=== PATIENT | female | born 1970 | race Two or more races ===

== ENCOUNTER 2023-10-22 16:39 | Inpatient (IN) | payer MEDICARE, OTHER ==
[~2023-10-22] VITALS: Ht 162.6 cm; Wt 69.4 kg
[2023-10-22] MEDS ORDERED: fixodent DT (20:17)
[2023-10-22] MEDS ORDERED: HYDR-3976 GT (20:17)
[2023-10-22] MEDS ORDERED: HYDR1LIQ PO (20:17)
[2023-10-22] MEDS ORDERED: [UNRECOGNIZED DRUG - CODE] TP (20:17)
[2023-10-22] MEDS ORDERED: DOCU100C36 PO (20:17)
[2023-10-22] MEDS ORDERED: ANAS1TAB50 NG (20:17)
[2023-10-22] MEDS ORDERED: LISI10TA29 PO (20:17)
[2023-10-22] MEDS ORDERED: IBUP-1953 PO (20:17)
[2023-10-22] MEDS ORDERED: OLAN5TAB3 PO (20:17)
[2023-10-22] MEDS ORDERED: ESCI10TA PO (20:17)
[2023-10-22] MEDS ORDERED: LETR2.5T8 MT (20:17)
[2023-10-22] MEDS: BLOOD SUGAR DIAGNOSTIC 1 EACH STRIP IN ONE (20:24)
[2023-10-22] MEDS ORDERED: HYDROCODONE/APAP 7.5/325MG 1 EACH TABLET GT PRN (21:00)
[2023-10-22] MEDS: LISINOPRIL (10MG) 10 MG TABLET PO SCH (21:00)
[2023-10-22] MEDS: LETROZOLE 2.5 MG TABLET PO SCH (21:00)
[2023-10-23] MEDS: IBUPROFEN 600 MG TABLET PO PRN (06:23)
[2023-10-23 07:23] LABS: ALBUMIN 3.2 g/dL (3.4-5.0); BILIRUBIN,TOTAL 0.8 mg/dL (0.2-1.0); CALCIUM, SERUM 9.3 mg/dL (8.5-10.1); CREATININE 0.7 mg/dL (0.6-1.3); POTASSIUM 4.2 mmol/L (3.5-5.1); TOTAL PROTEIN, SERUM 7.3 g/dL (6.4-8.2)
[2023-10-23 08:00] VITALS: BP 173/102; TEMP 98.2; O2SAT 100
[2023-10-23] MEDS: LORAZEPAM 0.5 MG TABLET PO PRN (08:29)
[2023-10-23] MEDS: DOCUSATE SODIUM 250 MG CAPSULE PO SCH (08:29)
[2023-10-23 08:47] LABS: CHOLESTEROL 143 mg/dL (<200); HDL CHOLESTEROL 80 mg/dL (40-60); LDL 52 mg/dL (0-99); TRIGLYCERIDES 52 mg/dL (30-150)
[2023-10-23] MEDS: NICOTINE PATCH (21MG) 21 MG PATCH.TD24 TD SCH (08:54)
[2023-10-23] MEDS: HYDROCODONE/APAP 5/325MG TABLET PO PRN (09:17)
[2023-10-23] MEDS: OLANZAPINE 10 MG VIAL IM ONE (12:32)
[2023-10-23] MEDS ORDERED: OLANZAPINE ZYDIS 5 MG TAB.RAPDIS SL PRN (13:00)
[2023-10-23 16:00] VITALS: BP 105/73; TEMP 97.9; O2SAT 98
[2023-10-23] MEDS: MAG HYDROX/AL HYDROX/SIMETH 30 ML UDC PO PRN (20:12)
[2023-10-23] MEDS: OLANZAPINE 5 MG TABLET PO SCH (20:14)
[2023-10-23 20:17] VITALS: BP 117/92; TEMP 97.8; O2SAT 99
[2023-10-24 08:00] VITALS: BP 102/67; TEMP 97.7; O2SAT 99
[2023-10-24] MEDS: ANASTROZOLE 1 MG TABLET PO SCH (08:44)
[2023-10-24] MEDS: OXCARBAZEPINE 150 MG TABLET PO SCH (16:32)
[2023-10-24 20:00] VITALS: BP 115/76; TEMP 98.1; O2SAT 95
[2023-10-24] MEDS: TEMAZEPAM 7.5 MG CAPSULE PO PRN (20:39)
[2023-10-24] MEDS: OLANZAPINE 5 MG TABLET PO SCH (21:57)
[2023-10-24 22:00] VITALS: BP 115/76
[2023-10-25] MEDS: OLANZAPINE 5 MG TABLET PO SCH ×3 (08:37→22:14)
[2023-10-25 10:00] VITALS: BP 113/85
[2023-10-25] MEDS: LORAZEPAM 1 MG TABLET PO ONE (12:26)
[2023-10-25 16:00] VITALS: BP 144/117; TEMP 97.8; O2SAT 98
[2023-10-25] MEDS: OXCARBAZEPINE 150 MG TABLET PO SCH (17:15)
[2023-10-25 20:00] VITALS: BP 144/94; TEMP 98.3; O2SAT 98
[2023-10-25 22:00] VITALS: BP 149/94
[2023-10-26 08:00] VITALS: BP 163/104; TEMP 98; O2SAT 96
[2023-10-26] MEDS: NICOTINE PATCH (21MG) 21 MG PATCH.TD24 TD ONE (09:26)
[2023-10-26 10:00] VITALS: BP 163/104
[2023-10-26 16:34] VITALS: BP 102/76; TEMP 98.9; O2SAT 97
[2023-10-26 20:00] VITALS: BP 104/81; TEMP 98.4; O2SAT 96
[2023-10-26 22:00] VITALS: BP 163/104
[2023-10-27] MEDS: ACETAMINOPHEN 325 MG TABLET PO PRN (05:42)
[2023-10-27 08:00] VITALS: BP 109/81; TEMP 97.7; O2SAT 97
[2023-10-27 10:00] VITALS: BP 109/81
[2023-10-27 16:00] VITALS: BP 145/88; TEMP 98.1; O2SAT 100
[2023-10-27] MEDS: OLANZAPINE 2.5 MG TABLET PO SCH (16:20)
[2023-10-27 21:21] VITALS: BP 139/95; TEMP 97.9; O2SAT 99
[2023-10-27 22:00] VITALS: BP 139/95
[2023-10-28] VITALS (7 sets, daily range): BP systolic 107–124; BP diastolic 73–83; TEMP 98–99.1; O2SAT 96–100
[2023-10-28] MEDS: MAGNESIUM HYDROXIDE 30 ML UDC PO PRN (23:07)
[2023-10-29 08:00] VITALS: BP 116/86; TEMP 98; O2SAT 98
[2023-10-29 08:01] VITALS: BP 116/66
== END 2023-10-29 10:55 | disposition home or self-care (01) | DRG 885 ==
LOC: GPS 18:48
PROVIDERS: ADMIT Psychiatry & Neurology Psychosomatic Medicine; ATTEND Nurse Practitioner Family
DX: F29 Unspecified psychosis not due to a substance or known physiological condition (principal); E44.1 Mild protein-calorie malnutrition; F23 Brief psychotic disorder; R45.851 Suicidal ideations; I10 Essential (primary) hypertension; G89.29 Other chronic pain; E88.09 Other disorders of plasma-protein metabolism, not elsewhere classified; F43.10 Post-traumatic stress disorder, unspecified; Z85.3 Personal history of malignant neoplasm of breast; Z88.2 Allergy status to sulfonamides; Z88.3 Allergy status to other anti-infective agents; Z73.6 Limitation of activities due to disability; F25.9 Schizoaffective disorder, unspecified; F19.11 Other psychoactive substance abuse, in remission; F10.21 Alcohol dependence, in remission; Z68.26 Body mass index [BMI] 26.0-26.9, adult
CPT/HCPCS: 36415; 73100-TC; 73521; 73564-TC; 80053-TC; 80061-TC; 82962-TC; J3490